=== PATIENT | male | born 1930 | race Caucasian/White ===

== ENCOUNTER 2017-08-06 17:19 | Inpatient (IN) | payer MEDICARE ==
[~2017-08-06] VITALS: Ht 182.9 cm; Wt 92.2 kg
[2017-08-06 17:38] VITALS: BP 130/60; PULSE 62; RESP 16; TEMP 98.8; O2SAT 98
[2017-08-06] MEDS ORDERED: CITR500T PO (20:08)
[2017-08-06] MEDS ORDERED: GLIP5TAB8 PO (20:08)
[2017-08-06] MEDS ORDERED: AMLO10TA2 PO (20:08)
[2017-08-06] MEDS ORDERED: CENTCHW3 (20:08)
[2017-08-06] MEDS ORDERED: FERR200T PO (20:08)
[2017-08-06] MEDS ORDERED: ASPI-516 CHEW (20:08)
[2017-08-06] MEDS ORDERED: OMEG1CAP28 PO (20:08)
[2017-08-06] MEDS ORDERED: VITA500T83 PO (20:08)
[2017-08-06] MEDS ORDERED: SIMV40TA PO (20:08)
[2017-08-06] MEDS ORDERED: D200CAP PO (20:08)
[2017-08-06] MEDS ORDERED: POLY17S PO (20:08)
[2017-08-06] MEDS ORDERED: ROPI0.5T PO (20:08)
[2017-08-06] MEDS ORDERED: LISI40TA PO (20:08)
[2017-08-06] MEDS ORDERED: LEVO88TA2 PO (20:08)
[2017-08-06] MEDS ORDERED: VENASTAT PO (20:08)
[2017-08-06] MEDS ORDERED: LUTE6CAP2 PO (20:09)
[2017-08-06 20:22] LABS: AUTOMATED NEUTROPHIL # 4.8 TH/MM3 (1.8-7.7); BASOPHIL # 0.1 TH/MM3 (0-0.2); BASOPHIL % 0.7 % (0.0-2.0); EOSINOPHIL # 0.5 TH/MM3 (0-0.4); EOSINOPHIL % 6.1 % (0.0-4.0); HEMO FLAGS DIFF FINAL; LYMPH % 27.1 % (9.0-44.0); LYMPHOCYTE # 2.2 TH/MM3 (1.0-4.8); MEAN CELL VOLUME 91.1 FL (80.0-100.0); MEAN CORPUSCULAR HEMOGLOBIN 29.5 PG (27.0-34.0); MEAN CORPUSCULAR HGB CONC 32.3 % (32.0-36.0); MONO % 8.1 % (0.0-8.0); PLATELET COUNT 190 TH/MM3 (150-450); RED BLOOD COUNT 3.19 MIL/MM3 (4.50-5.90); RED CELL DISTRIBUTION WIDTH 13.1 % (11.6-17.2); WHITE BLOOD COUNT 8.3 TH/MM3 (4.0-11.0)
[2017-08-06 20:29] LABS: POTASSIUM 6.2 MEQ/L (3.5-5.1)
[2017-08-06 20:32] LABS: BICARBONATE 18.9 MEQ/L (21.0-32.0)
[2017-08-06] MEDS ORDERED: SODIUM CHLORID 0.9% 500 ML INJ 500 ML IV ONE (20:45)
[2017-08-06] MEDS ORDERED: CALCIUM GLUCONATE 10% 1 GM/10 ML VIAL IV PUSH ONE (20:45)
[2017-08-06] MEDS ORDERED: SODIUM POLYSTYRENE SULFONATE SUSP 15 GM/60 ML CUP PO ONE (20:45)
[2017-08-06] MEDS ORDERED: RESP: ALBUTEROL 2.5 MG/3 ML NEB (SCH) NEB ONE (20:45)
--- NOTE | 2017-08-06 20:51 | PD ---
HPI Chief Complaint: Abnormal Results Time Seen by Provider: 20:13 Travel History International Travel<30 days: No Contact w/Intl Traveler<30days: No Traveled to known affect area: No History of Present Illness HPI Patient is an 86-year-old male presents emergency department after his physician 's office called him today telling him he needed to come to the emergency department because blood work was drawn yesterday. His blood work showed hyperkalemia. Patient states his creatinine usually runs about 1.5 but is been better recently down to 0.9. He has no physical complaints this time, denies any palpitations diarrhea abdominal pain nausea vomiting weakness fatigue or rash. PFSH Past Medical History Hx Anticoagulant Therapy: Yes (asa 81mg) Anemia: Yes Cardiovascular Problems: Yes (htn on meds) Diabetes: Yes (type 2) Patient Takes Glucophage: No Diminished Hearing: Yes Hypertension: Yes Tetanus Vaccination: > 5 Years Influenza Vaccination: Yes Past Surgical History Prostatectomy: Yes Social History Alcohol Use: No Tobacco Use: No Substance Use: No Allergies-Medications (Allergen,Severity, Reaction): Coded Allergies: No Known Allergies (Unverified , 08/06/17) Reported Meds & Prescriptions Reported Meds & Active Scripts Active Reported Lutein 6 Mg Cap 6 Mg PO DAILY Feosol (Ferrous Sulfate) 325 Mg (65 Mg Iron) Tab 200 Mg PO DAILY Centrum Silver (Multiple Vitamins W/ Minerals) 400 Mcg-250 Mcg Chw [venastat] PO BID Citrucel (Methylcellulose) 500 Mg Tab 2 Tab PO DAILY [id number] Ethyl Esters 1 Gm Cap 2 Gm PO BID D3 Super Strength (Cholecalciferol) 2,000 Unit Cap 400 Units PO DAILY Vitamin C ER (Ascorbic Acid) 500 Mg Odette 500 Mg PO Aspirin 81 Mg Chew 81 Mg CHEW DAILY Ropinirole 0.5 Mg Tab 0.5 Mg PO ONCE Amlodipine (Amlodipine Besylate) 10 Mg Tab 10 Mg PO DAILY Lisinopril 40 Mg Tab 40 Mg PO BID Glipizide 5 Mg Tab 5 Mg PO BIDAC Take 30 minutes before a meal Simvastatin 40 Mg Tab 40 Mg PO DAILY Levothyroxine (Levothyroxine Sodium) 88 Mcg Tab 88 Mcg PO DAILY Polyethylene Glycol 3350 Powder (Polyethylene Glycol) 17 Gram Pow 17 Gm PO DAILY Review of Systems Except as stated in HPI: all other systems reviewed are Neg Physical Exam Narrative GENERAL: Well-developed well-nourished in no obvious distress SKIN: Focused skin assessment warm/dry. HEAD: Atraumatic. Normocephalic. EYES: Pupils equal and round. No scleral icterus. No injection or drainage. ENT: No nasal bleeding or discharge. Mucous membranes pink and moist. NECK: Trachea midline. No JVD. CARDIOVASCULAR: Regular rate and rhythm. No murmur appreciated. RESPIRATORY: No accessory muscle use. Clear to auscultation. Breath sounds equal bilaterally. GASTROINTESTINAL: Abdomen soft, non-tender, nondistended. Hepatic and splenic margins not palpable. MUSCULOSKELETAL: No obvious deformities. No clubbing. No cyanosis. No edema. NEUROLOGICAL: Awake and alert. No obvious cranial nerve deficits. Motor grossly within normal limits. Normal speech. PSYCHIATRIC: Appropriate mood and affect; insight and judgment normal. Data Data Last Documented VS Vital Signs Date Time Temp Pulse Resp B/P (MAP) Pulse Ox O2 Delivery O2 Flow Rate FiO2 08/06/17 17:38 98.8 62 16 130/60 (83) 98 Orders Orders Complete Blood Count With Diff (08/06/17 20:12) Basic Metabolic Panel (Bmp) (08/06/17 20:12) Electrocardiogram (08/06/17 ) Sodium Chlorid 0.9% 500 Ml Inj (Ns 500 M (08/06/17 20:45) Admit Order (Ed Use Only) (08/06/17 ) Calcium Gluconate Inj (Calcium Gluconate (08/06/17 20:45) Sodium Polysty Sulfate Liq (Kayexalate L (08/06/17 20:45) Albuterol Neb (Albuterol Neb) (08/06/17 20:45) Labs Laboratory Tests Test 08/06/17 20:19 White Blood Count 8.3 TH/MM3 Red Blood Count 3.19 MIL/MM3 Hemoglobin 9.4 GM/DL Hematocrit 29.0 % Mean Corpuscular Volume 91.1 FL Mean Corpuscular Hemoglobin 29.5 PG Mean Corpuscular Hemoglobin Concent 32.3 % Red Cell Distribution Width 13.1 % Platelet Count 190 TH/MM3 Mean Platelet Volume 10.0 FL Neutrophils (%) (Auto) 58.0 % Lymphocytes (%) (Auto) 27.1 % Monocytes (%) (Auto) 8.1 % Eosinophils (%) (Auto) 6.1 % Basophils (%) (Auto) 0.7 % Neutrophils # (Auto) 4.8 TH/MM3 Lymphocytes # (Auto) 2.2 TH/MM3 Monocytes # (Auto) 0.7 TH/MM3 Eosinophils # (Auto) 0.5 TH/MM3 Basophils # (Auto) 0.1 TH/MM3 CBC Comment DIFF FINAL Differential Comment Blood Urea Nitrogen 45 MG/DL Creatinine 2.20 MG/DL Random Glucose 142 MG/DL Calcium Level 8.8 MG/DL Sodium Level 139 MEQ/L Potassium Level 6.2 MEQ/L Chloride Level 113 MEQ/L Carbon Dioxide Level 18.9 MEQ/L Anion Gap 7 MEQ/L Estimat Glomerular Filtration Rate 28 ML/MIN MDM Medical Decision Making Medical Screen Exam Complete: Yes Emergency Medical Condition: Yes Differential Diagnosis Hyperkalemia, acute kidney injury, electrolyte abnormality, uremia, Narrative Course patient is an 86-year-old male no complaints presents emergency department today for evaluation of hyperkalemia. Baseline creatinine according to him around 1.5 at improved to 0.9. Creatinine is 2.2 today, potassium confirmed at 6.2. Minimal T-wave EKG changes only in V3 and V4. Urine calcium, normal saline, Kayexalate, albuterol treatment. Discussed with Dr. Yancey for admission who is agreeable. patient shortly after discussion with dr kate also stated he has been told recently has mrsa in his blood. no s/s for infection appears non toxic. bcs drawn and sent. Diagnosis Primary Impression: MABLE (acute kidney injury) Additional Impression: Hyperkalemia Admitting Information Admitting Physician Requests: Admit Scripts Sodium Bicarbonate (Sodium Bicarbonate) 325 Mg Tab 650 MG PO Q12HR for Electrolyte Replacement for 30 Days, TAB Prov: Ekaterina MckeonP 08/09/17 Condition: Stable Chandu Keller MD Aug 06, 2017 20:51
[2017-08-06 21:00] VITALS: BP 157/68; PULSE 65; RESP 18; O2SAT 99
[2017-08-06 21:45] VITALS: BP 171/70; PULSE 90; RESP 18; O2SAT 97
[2017-08-06 22:03] LABS: BLOOD, URINE NEG (NEG); GLUCOSE,URINE NEG (NEG); KETONE, URINE NEG (NEG); NITRITE,URINE NEG (NEG); PH, URINE 5.5 (5.0-8.5)
[2017-08-06 22:15] LABS: COMMENT (UR) CULT NOT INDICATED; CULTURE IF INDICATED CULT NOT INDICATED; METHOD OF COLLECTION CLEAN CATCH; URINE COLOR YELLOW (YELLW/STRAW); WBC, URINE 0-2 /hpf (0-5)
[2017-08-06 22:27] VITALS: BP 156/70
[2017-08-06] MEDS ORDERED: SODIUM CHLORIDE 0.9% FLUSH 10 ML FLUSH IV FLUSH PRN (22:30)
[2017-08-06] MEDS ORDERED: NALOXONE HCL 0.4 MG/ML AMP IV PUSH PRN (22:30)
[2017-08-06 22:49] VITALS: PULSE 65
[2017-08-06 22:55] VITALS: BP 132/60; PULSE 79; RESP 18; TEMP 97.8; O2SAT 96
[2017-08-07 04:00] VITALS: BP 128/68
[2017-08-07] MEDS: LEVOTHYROXINE SODIUM 88 MCG TAB PO SCH (06:16)
--- NOTE | 2017-08-07 06:55 | HHI.HP ---
History of Present Illness Primary Care Physician Amilcar Jay, DO Admission Diagnosis MABLE, Hyperkalemia Diagnoses: History of Present Illness pt persented to ED with op lab showing K 6.2 Past Family Social History Allergies: Coded Allergies: No Known Allergies (Unverified , 08/06/17) Past Medical History hypertension diabetes anemia Past Surgical History previous knee and prostrate surgeries Reported Medications Reported Meds & Active Scripts Active Reported Lutein 6 Mg Cap 6 Mg PO DAILY Feosol (Ferrous Sulfate) 325 Mg (65 Mg Iron) Tab 200 Mg PO DAILY Centrum Silver (Multiple Vitamins W/ Minerals) 400 Mcg-250 Mcg Chw [venastat] PO BID Citrucel (Methylcellulose) 500 Mg Tab 2 Tab PO DAILY [id number] Ethyl Esters 1 Gm Cap 2 Gm PO BID D3 Super Strength (Cholecalciferol) 2,000 Unit Cap 400 Units PO DAILY Vitamin C ER (Ascorbic Acid) 500 Mg Odette 500 Mg PO Aspirin 81 Mg Chew 81 Mg CHEW DAILY Ropinirole 0.5 Mg Tab 0.5 Mg PO ONCE Amlodipine (Amlodipine Besylate) 10 Mg Tab 10 Mg PO DAILY Lisinopril 40 Mg Tab 40 Mg PO BID Glipizide 5 Mg Tab 5 Mg PO BIDAC Take 30 minutes before a meal Simvastatin 40 Mg Tab 40 Mg PO DAILY Levothyroxine (Levothyroxine Sodium) 88 Mcg Tab 88 Mcg PO DAILY Polyethylene Glycol 3350 Powder (Polyethylene Glycol) 17 Gram Pow 17 Gm PO DAILY Active Ordered Medications Inpatient Medications Albuterol Sulfate (Albuterol Neb) 2.5 mg ONCE ONCE NEB Last administered on 20:59; Start 08/06/17 at 20:45; Stop 08/06/17 at 20:50; Status DC Amlodipine Besylate (Norvasc) 10 mg DAILY PO ; Start 08/07/17 at 09:00 Aspirin (Aspirin Chew) 81 mg DAILY CHEW ; Start 08/07/17 at 09:00 Calcium Gluconate (Calcium Gluconate Inj) 1 gm ONCE ONCE IV PUSH Last administered on 08/06/17 21:16; Start 08/06/17 at 20:45; Stop 08/06/17 at 20:50 ; Status DC Cholecalciferol (Vitamin D3) 400 units DAILY PO ; Start 08/07/17 at 09:00 Ferrous Sulfate (Ferrous Sulfate) 325 mg DAILY PO ; Start 08/07/17 at 09:00 Glipizide (Glucotrol) 5 mg BIDAC PO ; Start 08/07/17 at 07:00 Levothyroxine Sodium (Synthroid) 88 mcg DAILY@0600 PO Last administered on 08/07 06:16; Start 08/07/17 at 06:00 Naloxone HCl (Narcan Inj) 0.4 mg UNSCH PRN IV PUSH SEE LABEL COMMENTS; Start 08/06/17 at 22:30 Polyethylene Glycol (Miralax) 17 gm DAILY PO ; Start 08/07/17 at 09:00 Pravastatin Sodium (Pravachol) 80 mg DAILY PO ; Start 08/06/17 at 09:00 Ropinirole HCl (Requip) 0.5 mg DAILY PO ; Start 08/07/17 at 09:00 Sodium Polystyrene Sulfonate (Kayexalate Liq) 15 gm ONCE ONCE PO Last administered on 08/06/17 21:16; Start 08/06/17 at 20:45; Stop 08/06/17 at 20:50 ; Status DC Sodium Chloride (NS Flush) 2 ml BID IV FLUSH ; Start 08/07/17 at 09:00 Vit C/Vit E/Zinc/ Copper/Lutein (Ocuvite) 1 tab DAILY PO ; Start 08/07/17 at 09: 00 Family History father had CVA mother in old age Social History non smoker non drinker retired [employer] Physical Exam Vital Signs Vital Signs Date Time Temp Pulse Resp B/P (MAP) Pulse Ox O2 Delivery O2 Flow Rate FiO2 08/07/17 04:00 128/68 (88) 08/06/17 22:55 97.8 79 18 132/60 (84) 96 08/06/17 22:49 65 08/06/17 22:27 89 18 156/70 (98) 97 08/06/17 21:45 90 18 171/70 (103) 97 Room Air 08/06/17 21:00 65 18 157/68 (97) 99 Room Air 08/06/17 17:38 98.8 62 16 130/60 (83) 98 Physical Exam GENERAL: This is a well-nourished, well-developed patient, in no apparent distress. SKIN: No rashes, ecchymoses or lesions. Cool and dry. HEAD: Atraumatic. Normocephalic. No temporal or scalp tenderness. EYES: Pupils equal round and reactive. Extraocular motions intact. No scleral icterus. No injection or drainage. ENT: Nose without bleeding, purulent drainage or septal hematoma. Throat without erythema, tonsillar hypertrophy or exudate. Uvula midline. Airway patent. NECK: Trachea midline. No JVD or lymphadenopathy. Supple, nontender, no meningeal signs. CARDIOVASCULAR: Regular rate and rhythm without murmurs, gallops, or rubs. RESPIRATORY: Clear to auscultation. Breath sounds equal bilaterally. No wheezes , rales, or rhonchi. GASTROINTESTINAL: Abdomen soft, non-tender, nondistended. No hepato-splenomegaly , or palpable masses. No guarding. MUSCULOSKELETAL: Extremities without clubbing, cyanosis, or edema. No joint tenderness, effusion, or edema noted. No calf tenderness. Negative Homans sign bilaterally. NEUROLOGICAL: Awake and alert. Cranial nerves II through XII intact. Motor and sensory grossly within normal limits. Five out of 5 muscle strength in all muscle groups. Normal speech. Laboratory Laboratory Tests Test 08/06/17 20:19 08/06/17 21:50 White Blood Count 8.3 Red Blood Count 3.19 Hemoglobin 9.4 Hematocrit 29.0 Mean Corpuscular Volume 91.1 Mean Corpuscular Hemoglobin 29.5 Mean Corpuscular Hemoglobin Concent 32.3 Red Cell Distribution Width 13.1 Platelet Count 190 Mean Platelet Volume 10.0 Neutrophils (%) (Auto) 58.0 Lymphocytes (%) (Auto) 27.1 Monocytes (%) (Auto) 8.1 Eosinophils (%) (Auto) 6.1 Basophils (%) (Auto) 0.7 Neutrophils # (Auto) 4.8 Lymphocytes # (Auto) 2.2 Monocytes # (Auto) 0.7 Eosinophils # (Auto) 0.5 Basophils # (Auto) 0.1 CBC Comment DIFF FINAL Differential Comment Blood Urea Nitrogen 45 Creatinine 2.20 Random Glucose 142 Calcium Level 8.8 Sodium Level 139 Potassium Level 6.2 Chloride Level 113 Carbon Dioxide Level 18.9 Anion Gap 7 Estimat Glomerular Filtration Rate 28 Urine Collection Type CLEAN CATCH Urine Color YELLOW Urine Turbidity CLEAR Urine pH 5.5 Urine Specific [place] 1.013 Urine Protein NEG Urine Glucose (UA) NEG Urine Ketones NEG Urine Occult Blood NEG Urine Nitrite NEG Urine Bilirubin NEG Urine Leukocyte Esterase NEG Urine WBC 0-2 Microscopic Urinalysis Comment CULT NOT INDICATED Urine Collection Time 2149 Date/Time Source Procedure Growth Status 08/06/17 21:10 Blood Peripheral Aerobic Blood Culture Pending Received 08/06/17 21:10 Blood Peripheral Anaerobic Blood Culture Pending Received Result Diagram: 08/06/17201808/06/172018 [place]ja[place] VTE Risk Assessment Caprini VTE Risk Assessment: No/Low Risk (score <= 1) Caprini Risk Assessment Model Point Value = 1 Point Value = 2 Point Value = 3 Point Value = 5 Age 41-60 Minor surgery BMI > 25 kg/m2 Swollen legs Varicose veins or History of unexplained or recurrent spontaneous Oral contraceptives or hormone replacement Sepsis (< 1 month) Serious lung disease, including pneumonia (< 1 month) Abnormal pulmonary function Acute myocardial infarction Congestive heart failure (< 1 month) History of inflammatory bowel disease Medical patient at bed rest Age 61-74 Arthroscopic surgery Major open surgery (> 45 min) Laparoscopic surgery (> 45 min) Malignancy Confined to bed (> 72 hours) Immobilizing plaster cast Central venous access Age >= 75 History of VTE Family history of VTE Factor V Leiden Prothrombin [id number] Lupus anticoagulant Anticardiolipin antibodies Elevated serum homocysteine Heparin-induced thrombocytopenia Other congenital or acquired thrombophilia Stroke (< 1 month) Elective arthroplasty Hip, pelvis, or leg fracture Acute spinal cord injury (< 1 month) Prophylaxis Regimen Total Risk Factor Score Risk Level Prophylaxis Regimen 0-1 Low Early ambulation 2 Moderate Order ONE of the following: *Sequential Compression Device (SCD) *Heparin 5000 units SQ BID 3-4 Higher Order ONE of the following medications: *Heparin 5000 units SQ TID *Enoxaparin/Lovenox 40 mg SQ daily (WT < 150 kg, CrCl > 30 mL/min) *Enoxaparin/Lovenox 30 mg SQ daily (WT < 150 kg, CrCl > 10-29 mL/min) *Enoxaparin/Lovenox 30 mg SQ BID (WT < 150 kg, CrCl > 30 mL/min) AND/OR *Sequential Compression Device (SCD) 5 or more Highest Order ONE of the following medications: *Heparin 5000 units SQ TID (Preferred with Epidurals) *Enoxaparin/Lovenox 40 mg SQ daily (WT < 150 kg, CrCl > 30 mL/min) *Enoxaparin/Lovenox 30 mg SQ daily (WT < 150 kg, CrCl > 10-29 mL/min) *Enoxaparin/Lovenox 30 mg SQ BID (WT < 150 kg, CrCl > 30 mL/min) AND *Sequential Compression Device (SCD) Assessment and Plan Assessment and Plan Hyperkalemia may be due to lisinopril med dcd follow bp CKD III consult renal Discussed Condition With patient Discharge Planning home Amilcar Jay DO Aug 07, 2017 06:55
[2017-08-07 08:00] VITALS: BP 147/75; PULSE 70; PULSE 78; RESP 16; TEMP 96.3; O2SAT 95
[2017-08-07 08:25] LABS: POTASSIUM 6.3 MEQ/L (3.5-5.1)
[2017-08-07] MEDS: CHOLECALCIFEROL (VIT D3) 400 UNIT TAB PO SCH (08:29)
[2017-08-07] MEDS: MULTIVITAMIN-OPHTHALMIC 1 TAB PO SCH (08:29)
[2017-08-07 08:30] LABS: BICARBONATE 20.3 MEQ/L (21.0-32.0)
[2017-08-07] MEDS: ASPIRIN 81 MG CHEW TAB CHEW SCH (08:30)
[2017-08-07] MEDS: PRAVASTATIN SOD 80 MG TAB PO SCH ×2 (08:30→09:00)
[2017-08-07] MEDS: FERROUS SULFATE 325 MG (65 MG ELEMENTAL IRON) TAB PO SCH (08:30)
[2017-08-07] MEDS: SODIUM CHLORIDE 0.9% FLUSH 10 ML FLUSH IV FLUSH SCH ×2 (08:31→20:09)
[2017-08-07] MEDS: POLYETHYLENE GLYCOL 17 GM PKG PO SCH (08:33)
[2017-08-07] MEDS: glipiZIDE 5 MG TAB PO SCH ×2 (08:39→17:46)
[2017-08-07] MEDS ORDERED: METHYLCELLULOSE PO SCH (09:00)
[2017-08-07] MEDS ORDERED: NON-FORMULARY DRUG (Omega-3-Acid Ethyl Esters 2 GM) PO SCH (09:00)
[2017-08-07] MEDS ORDERED: SODIUM POLYSTYRENE SULFONATE SUSP 15 GM/60 ML CUP PO ONE ×2 (11:00→15:15)
[2017-08-07 12:00] VITALS: BP 141/63; PULSE 80; RESP 16; TEMP 97.9; O2SAT 99
--- NOTE | 2017-08-07 15:27 | MB ---
cc: FRANK BRANDON MD DATE OF CONSULTATION: 08/07/2017 REASON FOR CONSULTATION: Elevated BUN and creatinine and hyperkalemia. HISTORY OF PRESENT ILLNESS: This is an 86-year-old male with past medical history of hypertension, ischemic heart disease, hypothyroidism, hyperlipidemia, diabetes mellitus who was sent to the emergency department because of high potassium of 6.2. I was called to see the patient because of elevated potassium level and elevated creatinine level. We do not have any previous labs for him but when the patient presented, the creatinine was 2.2 and the potassium was 6.2, and now the potassium is still elevated at 6.3 and creatinine is down to 1.8. The patient denies any nausea or vomiting. He denies any known history of renal disease but he was told that he has some dysfunction and according to him his primary care physician was keeping an eye on it. The patient's when she was on dialysis. He denies any nausea or vomiting. There is no history of diarrhea. No dysuria, hematuria, or difficulty passing urine. He denies taking any nonsteroidal anti-inflammatory drugs. PAST MEDICAL HISTORY: 1. Hypertension. 2. Diabetes mellitus. 3. Ischemic heart disease. 4. Hypothyroidism. 5. Hyperlipidemia. 6. Possible chronic kidney disease. REVIEW OF SYSTEMS: There is no history of fever. No headache, dizziness or blurring of vision. No shortness of breath. No chest pain. No palpitations. No nausea, vomiting, abdominal pain. No history of diarrhea. No dysuria or hematuria or difficulty passing urine. SOCIAL HISTORY: The patient is a . No history of smoking or alcoholism. FAMILY HISTORY: Family history noncontributory. ALLERGIES: NO KNOWN DRUG ALLERGIES. MEDICATIONS: Currently he is on: 1. Amlodipine 10 milligrams once a day. 2. Aspirin 81 milligrams daily. 3. Vitamin D3 400 units once a day. 4. Ferrous sulfate 325 milligrams daily. 5. MiraLax 17 grams once daily. 6. Requip 0.5 milligrams daily. 7. A multivitamin. 8. Pravachol 80 milligrams once a day. 9. Synthroid 88 micrograms daily. 10. Glipizide 5 milligrams twice a day. 11. The patient was given Kayexalate yesterday evening along with calcium gluconate and the dose was given today of Kayexalate around 11:00 o'clock. PHYSICAL EXAMINATION: GENERAL: On examination, the patient is awake and alert and he is not in acute distress. VITAL SIGNS: His last blood pressure was 141/63, temperature is 97.9, oxygen saturation is 95% to 98%. HEAD, EYES, EARS, NOSE, THROAT: The pupils are mid constricted. Nonicteric sclerae. Conjunctivae are pale. NECK: The neck is supple. JVD is not elevated. LUNGS: The patient has bilateral good air entry with occasional wheezing. HEART: S1 and S2 regular rhythm. ABDOMEN: Abdomen is distended, soft and lax. There is no tenderness. Bowel sounds positive. EXTREMITIES: There is no pedal edema. INVESTIGATIONS: White blood cell count is 8.3, hemoglobin 9.4, platelet count 119,000. Neutrophils 58%. Sodium 143, potassium 6.3, chloride 116, bicarbonate 20.3, BUN 39, creatinine 1.8. Calcium is 8.4. Blood cultures are showing no growth so far. IMAGING STUDIES: There are no imaging studies done. ASSESSMENT AND PLAN: 1. Acute kidney injury with possibility of chronic kidney disease. 2. Hyperkalemia. 3. Hypertension. 4. Hyperlipidemia. 5. History of hypothyroidism. The patient had a calcium of 6.2 yesterday and it is still elevated. The patient also has mild metabolic acidosis. The creatinine is at 1.8 from 2.2 yesterday. of acute kidney injury he has chronic kidney disease creatinine but he does not have any proteinuria. Most likely he has underlying hypertensive or disease. again. I will put him on oral sodium bicarbonate and today to improve the potassium and also check the urine potassium level. I will get an ultrasound of the kidneys. Thank you for the consultation and I will follow the patient while he is in the hospital. MD KEVEN Reza/LISA /2:54 PM /3:10 PM
[2017-08-07 16:00] VITALS: BP 143/65; PULSE 81; RESP 16; TEMP 97; O2SAT 99
--- NOTE | 2017-08-07 16:09 | RADRPT ---
EXAM DATE/TIME: 08/07/2017 15:20 [facility] COMPARISON: No previous studies available for comparison. INDICATIONS : Increased BUN/Creatnine MEDICAL HISTORY : Hypertension. Carcinoma, prostate. Hearing loss. Anticoagulant therapy. Arthritis. Diabtes. Anemia. SURGICAL HISTORY : Prostatectomy. ENCOUNTER: Initial ACUITY: 1 day PAIN SCORE: 0/10 LOCATION: Bilateral flank MEASUREMENTS: RIGHT KIDNEY: 11.1 x 4.3 x 5.3 cm LEFT KIDNEY: 11.7 x 4.2 x 5.6 cm FINDINGS: RIGHT KIDNEY: Renal cortex is normal in thickness and echotexture. No hydronephrosis, stone, or mass. LEFT KIDNEY: Multiple small calcifications in the mid left kidney with the largest measuring 7 x 7 x 6 mm. No evid ence for hydronephrosis. No significant renal mass. BLADDER: Within normal limits given the degree of distension. CONCLUSION: 1. Several nonobstructing left renal calyceal calculi measuring up to 7 mm. 2. No evidence for obstructive uropathy. Freddy Bennett MD on August 07, 2017 at 16:04 Board Certified Radiologist. This report was verified electronically.
[2017-08-07 20:00] VITALS: BP 121/66; PULSE 68; PULSE 75; RESP 16; TEMP 98.7; O2SAT 97
[2017-08-07] MEDS: SODIUM BICARBONATE 325 MG TAB PO SCH (20:09)
[2017-08-08] VITALS: BP 121/63; PULSE 73; RESP 16; TEMP 97.6; O2SAT 97
[2017-08-08 04:00] VITALS: BP 131/61; PULSE 70; RESP 18; TEMP 96.2; O2SAT 97
[2017-08-08] MEDS: LEVOTHYROXINE SODIUM 88 MCG TAB PO SCH (06:11)
[2017-08-08] MEDS: glipiZIDE 5 MG TAB PO SCH ×2 (06:11→17:40)
[2017-08-08 07:22] LABS: AUTOMATED NEUTROPHIL # 4.9 TH/MM3 (1.8-7.7); BASOPHIL # 0.1 TH/MM3 (0-0.2); BASOPHIL % 0.7 % (0.0-2.0); EOSINOPHIL # 0.6 TH/MM3 (0-0.4); EOSINOPHIL % 6.8 % (0.0-4.0); HEMATOCRIT 24.2 % (39.0-51.0); HEMO FLAGS DIFF FINAL; LYMPH % 26.4 % (9.0-44.0); LYMPHOCYTE # 2.2 TH/MM3 (1.0-4.8); MEAN CELL VOLUME 93.4 FL (80.0-100.0); MEAN CORPUSCULAR HEMOGLOBIN 31.2 PG (27.0-34.0); MEAN CORPUSCULAR HGB CONC 33.4 % (32.0-36.0); MONO % 7.1 % (0.0-8.0); PLATELET COUNT 147 TH/MM3 (150-450); RED BLOOD COUNT 2.59 MIL/MM3 (4.50-5.90); RED CELL DISTRIBUTION WIDTH 13.4 % (11.6-17.2); WHITE BLOOD COUNT 8.4 TH/MM3 (4.0-11.0)
[2017-08-08 07:24] LABS: POTASSIUM 5.5 MEQ/L (3.5-5.1)
[2017-08-08 07:27] LABS: BICARBONATE 21.3 MEQ/L (21.0-32.0)
[2017-08-08 08:00] VITALS: BP 145/65; PULSE 72; PULSE 76; RESP 16; TEMP 98.4; O2SAT 96
[2017-08-08] MEDS: FERROUS SULFATE 325 MG (65 MG ELEMENTAL IRON) TAB PO SCH (08:39)
[2017-08-08] MEDS: CHOLECALCIFEROL (VIT D3) 400 UNIT TAB PO SCH (08:40)
[2017-08-08] MEDS: SODIUM BICARBONATE 325 MG TAB PO SCH ×2 (08:40→21:16)
[2017-08-08] MEDS: PRAVASTATIN SOD 80 MG TAB PO SCH (08:40)
[2017-08-08] MEDS: POLYETHYLENE GLYCOL 17 GM PKG PO SCH (08:40)
[2017-08-08] MEDS: MULTIVITAMIN-OPHTHALMIC 1 TAB PO SCH (08:40)
[2017-08-08] MEDS: ASPIRIN 81 MG CHEW TAB CHEW SCH (08:40)
[2017-08-08] MEDS: SODIUM CHLORIDE 0.9% FLUSH 10 ML FLUSH IV FLUSH SCH ×2 (09:00→21:16)
--- NOTE | 2017-08-08 09:14 | HHI.PR ---
Subjective Remarks resting quietly K down but still elevated 5.5 bp rising with dc lisinopril may need norvasc Objective Vital Signs Date Time Temp Pulse Resp B/P (MAP) Pulse Ox O2 Delivery O2 Flow Rate FiO2 08/08/17 04:00 96.2 70 18 131/61 (84) 97 08/08/17 00:00 97.6 73 16 121/63 (82) 97 08/07/17 20:00 75 08/07/17 20:00 98.7 68 16 121/66 (84) 97 08/07/17 16:00 97.0 81 16 143/65 (91) 99 08/07/17 12:00 97.9 80 16 141/63 (89) 99 I/O 08/07/17 08/07/17 08/07/17 08/08/17 08/08/17 08/08/17 07:00 15:00 23:00 07:00 15:00 23:00 Intake Total 360 ml Balance 360 ml Intake Oral 360 ml # Voids 3 2 # Bowel Movements 1 Result Diagram: 08/08/17 0644 08/08/17 0644 Imaging Last Impressions Renal Ultrasound 08/07/17 0000 Signed Impressions: Service Date/Time: Monday, August 07, 2017 15:20 - CONCLUSION: 1. Several nonobstructing left renal calyceal calculi measuring up to 7 mm. 2. No evidence for obstructive uropathy. Freddy Bennett MD Objective Remarks GENERAL: Well-nourished, well-developed patient. SKIN: Warm and dry. HEAD: Normocephalic.recent incision for BCC left zygomatic arch EYES: No scleral icterus. No injection or drainage. NECK: Supple, trachea midline. No JVD or lymphadenopathy. CARDIOVASCULAR: Regular rate and rhythm without murmurs, gallops, or rubs. RESPIRATORY: Breath sounds equal bilaterally. No accessory muscle use. GASTROINTESTINAL: Abdomen soft, non-tender, nondistended. EXTREMITIES: No cyanosis, or edema. NEUROLOGICAL: Awake, alert, and oriented x 3. Non-focal. Medications and IVs Inpatient Medications Albuterol Sulfate (Albuterol Neb) 2.5 mg ONCE ONCE NEB Last administered on t 20:59; Start 08/06/17 at 20:45; Stop 08/06/17 at 20:50; Status DC Amlodipine Besylate (Norvasc) 10 mg DAILY PO Last administered on 08/08/17 08: 39; Start 08/07/17 at 09:00 Aspirin (Aspirin Chew) 81 mg DAILY CHEW Last administered on 08/08/17 08:40; Start 08/07/17 at 09:00 Calcium Gluconate (Calcium Gluconate Inj) 1 gm ONCE ONCE IV PUSH Last administered on 08/06/17 21:16; Start 08/06/17 at 20:45; Stop 08/06/17 at 20:50 ; Status DC Cholecalciferol (Vitamin D3) 400 units DAILY PO Last administered on 08/08/17 08:40; Start 08/07/17 at 09:00 Ferrous Sulfate (Ferrous Sulfate) 325 mg DAILY PO Last administered on 08:39; Start 08/07/17 at 09:00 Glipizide (Glucotrol) 5 mg BIDAC PO Last administered on 08/08/17 06:11; Start 08/07/17 at 07:00 Levothyroxine Sodium (Synthroid) 88 mcg DAILY@0600 PO Last administered on 08/08 06:11; Start 08/07/17 at 06:00 Naloxone HCl (Narcan Inj) 0.4 mg UNSCH PRN IV PUSH SEE LABEL COMMENTS; Start 08/06/17 at 22:30 Polyethylene Glycol (Miralax) 17 gm DAILY PO Last administered on 08/08/17 08: 40; Start 08/07/17 at 09:00 Pravastatin Sodium (Pravachol) 80 mg DAILY PO Last administered on 08/08/17 08 :40; Start 08/06/17 at 09:00 Ropinirole HCl (Requip) 0.5 mg DAILY PO Last administered on 08/08/17 08:40; Start 08/07/17 at 09:00 Sodium Polystyrene Sulfonate (Kayexalate Liq) 15 gm ONCE ONCE PO Last administered on 08/07/17 15:15; Start 08/07/17 at 15:15; Stop 08/07/17 at 15:16 ; Status DC Sodium Bicarbonate (Sodium Bicarbonate) 650 mg Q12HR PO Last administered on 08:40; Start 08/07/17 at 21:00 Sodium Chloride (NS Flush) 2 ml BID IV FLUSH Last administered on 08/07/17 20: 09; Start 08/07/17 at 09:00 Vit C/Vit E/Zinc/ Copper/Lutein (Ocuvite) 1 tab DAILY PO Last administered on 08/08/17 08:40; Start 08/07/17 at 09:00 Assessment and Plan Assessment and Plan Hyperkalemia may be due to lisinopril med dcd follow bp consider add norvasc if bp climbs CKD III consult renal Discussed Condition With patient Amilcar Jay DO Aug 08, 2017 09:14
[2017-08-08 12:00] VITALS: BP 128/61; PULSE 69; RESP 16; TEMP 97; O2SAT 96
[2017-08-08 16:00] VITALS: BP 156/70; PULSE 69; RESP 16; TEMP 97.1; O2SAT 96
--- NOTE | 2017-08-08 19:30 | HHI.NPPN ---
Subjective General Problems: Hypertension Renal Failure: Chronic, Acute, Stage III History of Present Illness 86-year-old male with past medical history of hypertension, ischemic heart disease, hypothyroidism, hyperlipidemia, diabetes mellitus who was sent to the emergency department because of high potassium of 6.2. I was called to see the patient because of elevated potassium level and elevated creatinine level. Additional Remarks Patient is alert, sitting on chair, no SOB, eating well. Review of Systems General Constitutional: Fatigue Cardiovascular Cardiac: NUNEZ Objective Data Data 08/08/17 08/09/17 19:00 07:00 Intake Total 600 ml Balance 600 ml Intake Oral 600 ml # Voids 3 Vital Signs Date Time Temp Pulse Resp B/P (MAP) Pulse Ox O2 Delivery O2 Flow Rate FiO2 08/08/17 16:00 97.1 69 16 156/70 (98) 96 08/08/17 12:00 97.0 69 16 128/61 (83) 96 08/08/17 08:00 98.4 76 16 145/65 (91) 96 08/08/17 08:00 72 08/08/17 04:00 96.2 70 18 131/61 (84) 97 08/08/17 00:00 97.6 73 16 121/63 (82) 97 08/07/17 20:00 75 08/07/17 20:00 98.7 68 16 121/66 (84) 97 -: 08/08/17 0644 08/08/17 0644 Physical Exam General Appearance: No Acute Distress, Comfortable Eyes Eye Exam: Pupils Equal Throat Throat Exam: Oral Mucosa [place] & Moist Neck Neck Exam: Neck Supple Pulmonary Resp Exam: Breath Sounds Equal, No Distress, Rhonchi, Decreased Bases Cardiology CV Exam: Regular, Normal Sinus Rhythm Gastrointestinal/Abdomen GI Exam: Soft, Non-Tender Extremeties Extremities Exam: Trace Edema Neurologic Neuro Exam: Alert, Awake, Oriented Psychiatric Psych Exam: Appropriate Responses Assessment/Plan Assessment Summary: MABLE/Acute Renal Failure, Hypertension, CKD Stage III Electrolyte Assessment: Hyperkalemia Problem List: Plan Assessment: 1. Acute kidney injury with possibility of chronic kidney disease. 2. Hyperkalemia. 3. Hypertension. 4. Hyperlipidemia. 5. History of hypothyroidism. Plan: Patient has possibly chronic kidney disease. Now develop MABLE, and Hyperkalemia. Possibly related to ACEI. BP is stable, K is improving. Creatinine is also better. Avoid Nephrotoxins, possible D/C in AM. Annette Quinonez MD Aug 08, 2017 19:30
[2017-08-08 20:00] VITALS: BP_SYST 126; BP_SYST 130; BP_DIAS 66; BP_DIAS 74; PULSE 67; PULSE 68; PULSE 69; RESP 20; TEMP 97.6; TEMP 97.9; O2SAT 96; O2SAT 98
--- NOTE | 2017-08-08 23:14 | EKG ---
Date Performed: 08/06/2017 Time Performed: 20:24:03 PTAGE: 86 years EKG: Sinus rhythm WITH FIRST DEGREE AV BLOCK POSSIBLE LATERAL MYOCARDIAL INFARCTION ABNORMAL ECG NO PREVIOUS TRACING DOCTOR: Emir Berman Interpretating Date/Time 08/08/2017 23:13:31
[2017-08-09] VITALS: BP 130/74; PULSE 68; RESP 20; TEMP 97.9; O2SAT 98
[2017-08-09 04:00] VITALS: BP 130/67; PULSE 72; RESP 20; TEMP 97.8; O2SAT 96
[2017-08-09] MEDS: LEVOTHYROXINE SODIUM 88 MCG TAB PO SCH (05:56)
[2017-08-09 07:01] LABS: HEMATOCRIT 24.7 % (39.0-51.0); MEAN CELL VOLUME 91.7 FL (80.0-100.0); MEAN CORPUSCULAR HEMOGLOBIN 30.4 PG (27.0-34.0); MEAN CORPUSCULAR HGB CONC 33.2 % (32.0-36.0); PLATELET COUNT 162 TH/MM3 (150-450); RED BLOOD COUNT 2.69 MIL/MM3 (4.50-5.90); REVIEW FLAG FINAL; WHITE BLOOD COUNT 7.8 TH/MM3 (4.0-11.0)
[2017-08-09] MEDS: glipiZIDE 5 MG TAB PO SCH (07:09)
[2017-08-09 07:17] LABS: POTASSIUM 5.3 MEQ/L (3.5-5.1)
[2017-08-09 08:00] VITALS: BP 140/67; PULSE 62; RESP 18; TEMP 96.4; O2SAT 94
[2017-08-09 08:15] VITALS: PULSE 62
[2017-08-09] MEDS: SODIUM BICARBONATE 325 MG TAB PO SCH (09:00)
[2017-08-09] MEDS: POLYETHYLENE GLYCOL 17 GM PKG PO SCH (09:00)
[2017-08-09] MEDS: CHOLECALCIFEROL (VIT D3) 400 UNIT TAB PO SCH (09:00)
[2017-08-09] MEDS: PRAVASTATIN SOD 80 MG TAB PO SCH (09:54)
[2017-08-09] MEDS: ASPIRIN 81 MG CHEW TAB CHEW SCH (09:55)
[2017-08-09] MEDS: FERROUS SULFATE 325 MG (65 MG ELEMENTAL IRON) TAB PO SCH (09:55)
[2017-08-09] MEDS: MULTIVITAMIN-OPHTHALMIC 1 TAB PO SCH (09:56)
[2017-08-09] MEDS: SODIUM CHLORIDE 0.9% FLUSH 10 ML FLUSH IV FLUSH SCH (10:00)
[2017-08-09] MEDS ORDERED: SODI325T PO (10:02)
--- NOTE | 2017-08-09 10:06 | HHI.FF ---
Face to Face Verification Diagnosis: (1) Hyperkalemia Home Health Nursing Order: Medical education Medication education-adverse effect I have seen patient Bryan Ramirez on 08/09/17. My clinical findings support the need for the requested home health care services because: Ltd mobility - disease progression Med compliance is questionable I certify that my clinical findings support that this patient is homebound because: Impaired cognitive ability/safety Need for psychosocial assistance Ekaterina Mckeon Aug 09, 2017 10:06
--- NOTE | 2017-08-09 10:13 | HHI.DS ---
Discharge Summary Admission Date Aug 06, 2017 at 20:50 Discharge Date: Aug 09, 2017 Admitting Diagnosis MABLE, Hyperkalemia (1) Hyperkalemia ICD Codes: E87.5 - Hyperkalemia (2) MABLE (acute kidney injury) ICD Codes: N17.9 - Acute kidney failure, unspecified Procedures renal us Brief History Patient is a 86 year old male who presented to ED with op lab showing K 6.2 CBC/BMP: 08/09/17 0655 08/09/17 0655 Significant Findings Laboratory Tests Test 08/06/17 20:19 08/06/17 21:50 08/07/17 06:52 08/07/17 21:45 Red Blood Count 3.19 MIL/MM3 (4.50-5.90) Hemoglobin 9.4 GM/DL (13.0-17.0) Hematocrit 29.0 % (39.0-51.0) Monocytes (%) (Auto) 8.1 % (0.0-8.0) Eosinophils (%) (Auto) 6.1 % (0.0-4.0) Eosinophils # (Auto) 0.5 TH/MM3 (0-0.4) Blood Urea Nitrogen 45 MG/DL (7-18) 39 MG/DL (7-18) Creatinine 2.20 MG/DL (0.60-1.30) 1.80 MG/DL (0.60-1.30) Random Glucose 142 MG/DL (74-106) Potassium Level 6.2 MEQ/L (3.5-5.1) 6.3 MEQ/L (3.5-5.1) Chloride Level 113 MEQ/L (98-107) 116 MEQ/L (98-107) Carbon Dioxide Level 18.9 MEQ/L (21.0-32.0) 20.3 MEQ/L (21.0-32.0) Estimat Glomerular Filtration Rate 28 ML/MIN (>89) 36 ML/MIN (>89) Calcium Level 8.4 MG/DL (8.5-10.1) Test 08/08/17 06:44 08/09/17 06:55 Red Blood Count 2.59 MIL/MM3 (4.50-5.90) 2.69 MIL/MM3 (4.50-5.90) Hemoglobin 8.1 GM/DL (13.0-17.0) 8.2 GM/DL (13.0-17.0) Hematocrit 24.2 % (39.0-51.0) 24.7 % (39.0-51.0) Platelet Count 147 TH/MM3 (150-450) Eosinophils (%) (Auto) 6.8 % (0.0-4.0) Eosinophils # (Auto) 0.6 TH/MM3 (0-0.4) Blood Urea Nitrogen 36 MG/DL (7-18) 34 MG/DL (7-18) Creatinine 1.60 MG/DL (0.60-1.30) Calcium Level 8.2 MG/DL (8.5-10.1) 8.3 MG/DL (8.5-10.1) Potassium Level 5.5 MEQ/L (3.5-5.1) 5.3 MEQ/L (3.5-5.1) Chloride Level 116 MEQ/L (98-107) 114 MEQ/L (98-107) Estimat Glomerular Filtration Rate 41 ML/MIN (>89) 52 ML/MIN (>89) Imaging Last 72 hours Impressions Renal Ultrasound 08/07/17 0000 Signed Impressions: Service Date/Time: Monday, August 07, 2017 15:20 - CONCLUSION: 1. Several nonobstructing left renal calyceal calculi measuring up to 7 mm. 2. No evidence for obstructive uropathy. Freddy Bennett MD PE at Discharge GENERAL: alert and cooperative SKIN: Warm and dry. HEAD: Normocephalic. EYES: No scleral icterus. No injection or drainage. NECK: Supple, trachea midline. No JVD or lymphadenopathy. CARDIOVASCULAR: Regular rate and rhythm without murmurs, gallops, or rubs. RESPIRATORY: Breath sounds equal bilaterally. No accessory muscle use. GASTROINTESTINAL: Abdomen soft, non-tender, nondistended. MUSCULOSKELETAL: No cyanosis, or edema. BACK: Nontender without obvious deformity. No CVA tenderness. Hospital Course Patient is a 86 year old male who presented to ED with op lab showing K 6.2. Patient was admitted with MABLE on possible CKD, Hyperkalemia, and HTN. Hyperkalemia possibley related to ACEI. Medication was discontinued. Blood pressure is stable and potassium is improving at 5.3 today. Creatinine is also improving creatinine is 1.30 today down from 2.20 at admission. BUN also improving from 45 to 35 today. Patient is instructed to avoid Nephrotoxins. Follow up appt with Dr. Jay on Wednesday. Blood work will need to be repeated. Also should follow up with nephrology. Pt Condition on Discharge: Good Discharge Disposition: Disch w/ Home Health Serv Discharge Instructions DIET: Follow Instructions for: Heart Healthy Diet Additional Diet Instructions: Low potassium Activities you can perform: Regular-No Restrictions Follow up Referrals: Appointment for Follow Up @ [facility] Follow-up @ [facility] New Medications: Sodium Bicarbonate (Sodium Bicarbonate) 325 Mg Tab 650 MG PO Q12HR for Electrolyte Replacement for 30 Days, TAB Continued Medications: Amlodipine (Amlodipine) 10 Mg Tab 10 MG PO DAILY for Blood Pressure Management, #30 TAB 0 Refills Ascorbic Acid ER (Vitamin C ER) 500 Mg Odette 500 MG PO for Nutritional Supplement, TAB 0 Refills Aspirin (Aspirin) 81 Mg Chew 81 MG CHEW DAILY, TAB 0 Refills Cholecalciferol (D3 Super Strength) 2,000 Unit Cap 400 UNITS PO DAILY for Nutritional Supplement, #30 CAP 0 Refills Ferrous Sulfate (Feosol) 325 Mg (65 Mg Iron) Tab 200 MG PO DAILY for Nutritional Supplement, #30 TAB 0 Refills Glipizide (Glipizide) 5 Mg Tab 5 MG PO BIDAC for Blood Sugar Management, #60 TAB 0 Refills Take 30 minutes before a meal Levothyroxine (Levothyroxine) 88 Mcg Tab 88 MCG PO DAILY for Thyroid, #30 TAB 0 Refills Methylcellulose (Citrucel) 500 Mg Tab 2 TAB PO DAILY for Prevent Constipation, TAB 0 Refills Yilqm-6-Zusu Ethyl Esters (Pofgy-7-Eqne Ethyl Esters) 1 Gm Cap 2 GM PO BID for Manage Triglycerides, #120 CAP 0 Refills Polyethylene Glycol 3350 Powder (Polyethylene Glycol 3350 Powder) 17 Gram Pow 17 GM PO DAILY for Constipation, #1 BOTTLE 0 Refills Ropinirole (Ropinirole) 0.5 Mg Tab 0.5 MG PO ONCE, #1 TAB 0 Refills Simvastatin (Simvastatin) 40 Mg Tab 40 MG PO DAILY for Cholesterol Management, #30 TAB 0 Refills Discontinued Medications: Lisinopril (Lisinopril) 40 Mg Tab 40 MG PO BID for Blood Pressure Management, #30 TAB 0 Refills Lutein (Lutein) 6 Mg Cap 6 MG PO DAILY for Nutritional Supplement, CAP 0 Refills Multiple Vitamins W/ Minerals (Centrum Silver) 400 Mcg-250 Mcg Chw [venastat] () PO BID Ekaterina Mckeon Aug 09, 2017 10:13
[2017-08-09 12:00] VITALS: BP 150/71; PULSE 66; RESP 18; TEMP 98.2; O2SAT 98
== END 2017-08-09 13:50 | disposition home health service (06) | DRG 683 ==
LOC: PHED 17:19 → PHEDA 20:50 → PH3B 22:38
PROVIDERS: ADMIT Family Medicine; ATTEND Family Medicine
DX: N17.9 Acute kidney failure, unspecified (principal); E87.2 Acidosis; E11.22 Type 2 diabetes mellitus with diabetic chronic kidney disease; E87.5 Hyperkalemia; I25.9 Chronic ischemic heart disease, unspecified; N18.3 Chronic kidney disease, stage 3 (moderate); I12.9 Hypertensive chronic kidney disease with stage 1 through stage 4 chronic kidney disease, or unspecified chronic kidney disease; E03.9 Hypothyroidism, unspecified; E78.5 Hyperlipidemia, unspecified; H91.90 Unspecified hearing loss, unspecified ear; Z79.82 Long term (current) use of aspirin; Z79.01 Long term (current) use of anticoagulants
CPT/HCPCS: 76775; 80048; 81001; 82948; 84133; 85025; 85027; 87040; 93005; 94664; 99285; J0610; J7040; J7613